=== PATIENT | male | born 1975 ===

== ENCOUNTER 2018-11-21 19:23 | Emergency (ER) | payer SELFPAY ==
[2018-11-21 19:27] VITALS: BP 117/72; PULSE 78; RESP 18; TEMP 97.6; O2SAT 98
[2018-11-21] MEDS ORDERED: Sodium Chloride 0.9% 1,000 ML IV STA (20:18)
--- NOTE | 2018-11-21 20:19 | ED PDOC ---
HPI: Psych/Substance Abuse Time Seen by Provider: 11/21/18 20:10 Chief Complaint (Nursing): Alcohol Ingestion Chief Complaint (Provider): ETOH History Per: Patient History/Exam Limitations: no limitations Additional Complaint(s): 43 y/o male brought in by EMS for evaluation of alcohol intoxication. Patient states he drank "too much" tonight. Patient actively vomiting. Past Medical History Reviewed: Historical Data, Nursing Documentation, Vital Signs Vital Signs: Last Vital Signs Temp 97.6 F 11/21/18 19:25 Pulse 78 11/21/18 19:25 Resp 18 11/21/18 19:25 BP 117/72 11/21/18 19:25 Pulse Ox 98 11/21/18 19:25 - Medical History PMH: No Chronic Diseases - Surgical History Surgical History: No Surg Hx - Family History Family History: States: No Known Family Hx - Allergies Allergies/Adverse Reactions: Allergies Allergy/AdvReac Type Severity Reaction Status Date / Time Unobtainable Allergy Verified 11/21/18 19:25 Review of Systems ROS Statement: Except As Marked, All Systems Reviewed And Found Negative Physical Exam - Reviewed Nursing Documentation Reviewed: Yes Vital Signs Reviewed: Yes - Physical Exam Appears: Positive for: Well, Non-toxic, Uncomfortable (vomiting) Head Exam: Positive for: ATRAUMATIC, NORMAL INSPECTION, NORMOCEPHALIC Skin: Positive for: Normal Color Eye Exam: Positive for: Normal appearance ENT: Positive for: Normal ENT Inspection Cardiovascular/Chest: Positive for: Regular Rate, Rhythm Respiratory: Positive for: Normal Breath Sounds Gastrointestinal/Abdominal: Positive for: Normal Exam Back: Positive for: Normal Inspection Extremity: Positive for: Normal ROM Neurologic/Psych: Positive for: Alert, Oriented (x2) - Laboratory Results Result Diagrams: 11/21/18 22:29 11/21/18 22:29 - ECG O2 Sat by Pulse Oximetry: 98 - Progress ED Course And Treament: -accucheck -cbc -cmp -alcohol -IV NS bolus -IV zofran 22:30 Patient no longer vomiting and states he is no longer nauseous, pitcher of water given 00:00 Patient awake, alert, oriented x3. Ambulating steady gait. Tolerated PO. Patient states he drink a bottle of tequila with 3 friends and he has not drank in a while Patient requires no further intervention in the ED and is stable for discharge at this time Return precautions given Disposition - Clinical Impression Clinical Impression: Alcohol intoxication - Patient ED Disposition Is Patient to be Admitted: No Counseled Patient/Family Regarding: Studies Performed, Diagnosis, Need For Followup - Disposition Disposition: Routine/Home Disposition Time: 00:04 Condition: IMPROVED Instructions: Alcohol Use - When Is Drinking a Problem? Print Language: TURKISH
[2018-11-21 22:32] LABS: BASO # 0.1 K/uL (0.0-0.2); BASO % 0.8 % (0.0-2.0); EOS % 0.2 % (0.0-4.0); HEMOGLOBIN 15.2 g/dL (12.0-18.0); LYMPH % 16.1 % (20.0-40.0); MEAN CELL VOLUME 93.6 fl (80.0-94.0); MEAN CORPUSCULAR HEMOGLOBIN 31.4 pg (27.0-31.0); MEAN CORPUSCULAR HGB CONC 33.5 g/dL (33.0-37.0); MEAN PLATELET VOLUME 10.8 fl (7.2-11.7); MONO # 0.2 K/uL (0.0-0.8); MONO % 2.4 % (0.0-10.0); NEUT # 5.2 K/uL (1.8-7.0); NEUT % 80.5 % (50.0-75.0); NRBC % 0.1 % (0.0-0.0); RBC 4.85 Mil/uL (4.40-5.90); RED CELL DISTRIBUTION WIDTH 13.6 % (11.5-14.5); WHITE BLOOD COUNT 6.5 K/uL (4.8-10.8)
[2018-11-21 22:54] LABS: ALB/GLOB RATIO 1.3 (1.0-2.1); ALBUMIN 4.6 g/dL (3.5-5.0); ALT/SGPT 38 U/L (21-72); AST/SGOT 33 U/L (17-59); BLOOD UREA NITROGEN 17 mg/dl (9-20); CALCIUM 8.6 mg/dL (8.4-10.2); GFR NON-AFRICAN AMERICAN > 60
== END 2018-11-22 00:23 | disposition home or self-care (01) ==
LOC: H.ER 19:23
DX: F10.129 Alcohol abuse with intoxication, unspecified (principal)
CPT/HCPCS: 80053; 85025; 99283; G0480